=== PATIENT | male | born 1955 | race Native Hawaiian/Other Pacific Islander ===

== ENCOUNTER 2018-03-24 05:58 | Emergency (ER) | payer MEDICARE ==
[2018-03-24 06:38] LABS: BASO # 0.1 K/uL (0.0-0.2); BASO % 1.2 % (0.0-2.0); EOS # 0.2 K/uL (0.0-0.7); EOS % 2.7 % (0.0-4.0); HEMOGLOBIN 15.5 g/dL (12.0-18.0); LYMPH # 2.6 K/uL (1.0-4.3); LYMPH % 29.1 % (20.0-40.0); MEAN CORPUSCULAR HEMOGLOBIN 29.9 pg (27.0-31.0); MEAN CORPUSCULAR HGB CONC 33.6 g/dL (33.0-37.0); MONO # 0.9 K/uL (0.0-0.8); MONO % 10.4 % (0.0-10.0); NEUT # 5.2 K/uL (1.8-7.0); NEUT % 56.6 % (50.0-75.0); NRBC % 0.1 % (0.0-2.0); RBC 5.17 Mil/uL (4.40-5.90); RED CELL DISTRIBUTION WIDTH 13.6 % (11.5-14.5); WHITE BLOOD COUNT 9.1 K/uL (4.8-10.8)
[2018-03-24 07:06] LABS: ALB/GLOB RATIO 1.7 (1.0-2.1); ALBUMIN 4.5 g/dL (3.5-5.0); ALT/SGPT 29 U/L (21-72); AST/SGOT 25 U/L (17-59); BLOOD UREA NITROGEN 20 mg/dL (9-20); CALCIUM 9.3 mg/dl (8.6-10.4); GFR NON-AFRICAN AMERICAN > 60
--- NOTE | 2018-03-24 07:43 | C.PDOC ---
History Of Present Illness 62 y/o M c PMHx HTN p/w dizziness this morning and L leg pain x 2 months. Patient describes his dizziness as a spinning sensation that is intermittent, worsened when he moves his head and is improved with staying still. He had it once prior this past week and saw his PMD who prescribed him meclizine. He took his blood pressure afterward and found it to be elevated. He denies chest pain, dyspnea, back pain, abdominal pain, vomiting, headache. Patient also report L leg pain x 2 months. He states that he has had multiple tests to discern the cause including doppler to rule out DVT, XR, MRI, and ABIs. Patient states that all the testing was negative other than the MRI which showed "an old injury." He has been prescribed pain medications, physical therapy, and Gabapentin. He does not wish to take pills but also states that nothing is relieving the pain. He has been offered a steroid injection by one of his doctors but he declined because he was told it would last only 3 months. He denies any new injury, swelling, fever, or erythema. Time Seen by Provider: 03/24/18 07:09 Chief Complaint (Nursing): Dizziness/Lightheaded Past Medical History Vital Signs: Last Vital Signs Temp 98.0 F 03/24/18 06:07 Pulse 70 03/24/18 06:27 Resp 20 03/24/18 06:27 BP 164/90 H 03/24/18 06:27 Pulse Ox 99 03/24/18 06:27 - Medical History PMH: HTN, Hypercholesterolemia Family History: States: No Known Family Hx - Social History Hx Alcohol Use: No Hx Substance Use: No - Immunization History Hx Tetanus Toxoid Vaccination: Yes Hx Influenza Vaccination: Yes Hx Pneumococcal Vaccination: Yes Review Of Systems Except As Marked, All Systems Reviewed And Found Negative. Constitutional: Negative for: Fever Cardiovascular: Negative for: Chest Pain Physical Exam - Physical Exam Additional Physical Exam Comments: Gen: NAD Head: NC/AT Eyes: PERRL ENT: MMM. Abe Hallpike positive. Neck: Supple Chest: No tenderness CV: Regular rate Lungs: CTA b/l Abd: Soft, NT Back: No CVA tenderness Extremities: FROM x 4. No edema. No focal tenderness. L lower leg without deformity. Skin: No cyanosis, ecchymosis, erythema, or duskiness. Neuro: Alert, no focal deficit. ED Course And Treatment - Laboratory Results Result Diagrams: 03/24/18 06:35 03/24/18 06:35 O2 Sat by Pulse Oximetry: 99 Medical Decision Making Medical Decision Making: Symptoms consistent with BPPV. Continue Meclizine and follow up with ENT. Paddy hope has had extensive testing for L leg pain and has good follow up care. I advised patient that he has been given options for treatment and that no further Emergency Department treatment will improve upon this. Discharged home, f/u PMD, instructed to return to ED for worsening pain, fever, vomiting, headache, vision change, dyspnea, chest pain, or any other problem. Disposition - Disposition Referrals: Taqueria Fernandez MD [Staff Provider] - Disposition: HOME/ ROUTINE Disposition Time: 07:42 Condition: STABLE Instructions: Vertigo (a Type of Dizziness) Forms: [facility] (Lao) - Clinical Impression Clinical Impression: BPPV (benign paroxysmal positional vertigo)
[2018-03-24 07:55] VITALS: BP 160/84; PULSE 74; RESP 18; TEMP 98
[2018-03-24 08:30] VITALS: O2SAT 99
--- NOTE | 2018-03-26 20:56 | CARD ---
APPROVED REPORT Date of service: 03/24/2018 EKG Measurement Heart [id number] <Conclusion> Normal sinus rhythm Normal ECG
== END 2018-03-24 07:58 | disposition home or self-care (01) ==
LOC: C.ER 05:58
DX: H81.10 Benign paroxysmal vertigo, unspecified ear (principal); I10 Essential (primary) hypertension; E78.00 Pure hypercholesterolemia, unspecified